=== PATIENT | male | born 1975 | race Caucasian/White ===

== ENCOUNTER → 2016-10-04 | Outpatient (CLI) | payer OTHER ==
--- NOTE | 2016-10-05 08:00 | US ---
EXAMINATION TYPE: US thyroid st tissue head/neck DATE OF EXAM: 10/04/2016 4:32 PM COMPARISON: NONE CLINICAL HISTORY: E03.9 Hypothyroidism. Hypothyroid GLAND SIZE: Right Lobe: 4.1 x 1.1 x 1.2 cm Overall Parenchyma: heterogenous Left Lobe: 4.1 x 1.3 x 1.6 cm Overall Parenchyma: heterogeneous Isthmus Thickness: 0.3 cm NODULES RIGHT: # of nodules measured on right: 0 LEFT: # of nodules measured on left: 0 ISTHMUS: # of nodules measured in the isthmus: 0 Bilateral neck scanned, no evidence of lymphadenopathy/ Small, heterogenous thyroid bilaterally IMPRESSION: Nonspecific thyroid heterogeneity without discrete nodule identified.
== END | disposition home or self-care (01) ==
LOC: RADUSWWP 16:17
PROVIDERS: ATTEND Family Medicine
DX: E03.9 Hypothyroidism, unspecified (principal)
CPT/HCPCS: 76536

== ENCOUNTER 2017-01-26 10:54 | Observation (INO) | payer OTHER ==
[2017-01-26] MEDS ORDERED: RX INFO: IV CONTRAST WAS GIVEN 1 EACH MISC MISCELLANE PRN (12:09)
[2017-01-26 13:13] LABS: Basophils # (A) 0.1 k/uL (0-0.2); Basophils % (A) 1 %; CH 30.7; CHCM 34.6; Eosinophils # (A) 0.1 k/uL (0-0.7); Eosinophils % (A) 1 %; HDW 2.78; Luc # (Auto) 0.14; Luc % (Auto) 2; Lymphocytes # (A) 2.2 k/uL (1.0-4.8); Lymphocytes % (A) 28 %; MCH 29.1 pg (25.0-35.0); MCHC 32.6 g/dL (31.0-37.0); MCV 89.1 fL (80.0-100.0); Mean Platelet Volume 7.1; Monocytes # (A) 0.5 k/uL (0-1.0); Monocytes % (A) 6 %; Neutrophils # (A) 4.9 k/uL (1.3-7.7); Neutrophils % (A) 62 %; RBC 4.82 m/uL (4.30-5.90); RDW 14.4 % (11.5-15.5); WBC 7.8 k/uL (3.8-10.6); WBC (Perox) 7.52
--- NOTE | 2017-01-26 13:17 | ED ---
General Adult HPI - General Source: patient, RN notes reviewed Mode of arrival: ambulatory Limitations: no limitations <Calvin Lopez - Last Filed: 01/26/17 15:52> <Gustavo Henderson - Last Filed: 01/26/17 22:31> - General Chief complaint: Abdominal Pain Stated complaint: lower abd pain Time Seen by Provider: 01/26/17 12:01 - History of Present Illness Initial comments: Patient 41-year-old male who presents emergency room today with chief complaint of pain to the right lower quadrant last 3 days. Patient does admit that he also is worried about a hernia to the umbilical area. States with the family doctor earlier today and was advised coming here to the emergency room for further evaluation. Patient currently rates pain 5/10. He denies any other complaints associated symptoms. Has not any pain medication here. Patient denies any recent fever, chills, shortness of breath, chest pain, back pain, nausea or vomiting, numbness or tingling, dysuria or hematuria, constipation or diarrhea, headaches or visual changes, or any other complaints. (Calvin Lopez) - Related Data Home Medications Medication Instructions Recorded Confirmed Levothyroxine Sodium [Synthroid] 125 mcg PO DAILY 01/29/15 01/26/17 Atorvastatin [Lipitor] 40 mg PO HS 01/26/17 01/26/17 Allergies Allergy/AdvReac Type Severity Reaction Status Date / Time No Known Allergies Allergy Verified 01/26/17 12:00 Review of Systems ROS Other: All systems not noted in ROS Statement are negative. <Calvin Lopez - Last Filed: 01/26/17 15:52> ROS Other: All systems not noted in ROS Statement are negative. <Gustavo Henderson - Last Filed: 01/26/17 22:31> ROS Statement: Those systems with pertinent positive or pertinent negative responses have been documented in the HPI. Past Medical History Past Medical History: Thyroid Disorder History of Any Multi-Drug Resistant Organisms: None Reported Past Surgical History: Ear Surgery Additional Past Surgical History / Comment(s): back Past Psychological History: Anxiety Smoking Status: Light tobacco smoker Past Alcohol Use History: None Reported Past Drug Use History: None Reported <Calvin Lopez - Last Filed: 01/26/17 15:52> General Exam Limitations: no limitations <Calvin Lopez - Last Filed: 01/26/17 15:52> <Gustavo Henderson - Last Filed: 01/26/17 22:31> - General Exam Comments Initial Comments: General: The patient is awake and alert, in no distress, and does not appear acutely ill. Eye: Pupils are equal, round and reactive to light, extra-ocular movements are intact. No nystagmus. There is normal conjunctiva bilaterally. No signs of icterus. Ears, nose, mouth and throat: There are moist mucous membranes and no oral lesions. Neck: The neck is supple, there is no tenderness or JVD. Cardiovascular: There is a regular rate and rhythm. No murmur, rub or gallop is appreciated. Respiratory: Lungs are clear to auscultation, respirations are non-labored, breath sounds are equal. No wheezes, stridor, rales, or rhonchi. Gastrointestinal: Normal appearance abdomen. Normal bowel sounds. Abdomen soft on palpation. Patient does have mild tenderness to the umbilical area small hernia that is reducible. Patient does have increased tenderness to the right lower quadrant. No rebound tenderness. No guarding. Musculoskeletal: Normal ROM, no tenderness. Strength 5/5. Sensation intact. Pulses equal bilaterally 2+. Neurological: A&O x 3. CN II-XII intact, There are no obvious motor or sensory deficits. Coordination appears grossly intact. Speech is normal. Skin: Skin is warm and dry and no rashes or lesions are noted. Psychiatric: Cooperative, appropriate mood & affect, normal judgment. (Calvin Lopez) Medical Decision Making - Lab Data Result diagrams: 01/26/17 12:57 01/26/17 12:57 <Calvin Lopez - Last Filed: 01/26/17 15:52> - Lab Data Result diagrams: 01/26/17 12:57 01/26/17 12:57 <Gustavo Henderson - Last Filed: 01/26/17 22:31> - Medical Decision Making Patient's CT does show evidence consistent with an acute appendicitis. Patient updated results will be started on antibiotics here in the emergency room and admitted to surgical patient aware the plan states understanding. (Calvin Lopez) Three-day history of abdominal pain primarily right lower quadrant. Patient is tender, CT does show early appendicitis with a 7 mm appendix and adjacent fat stranding. Case is discussed with general surgery. Patient will be admitted, likely OR at 5:30 PM. (Gustavo Henderson) - Lab Data Lab Results 01/26/17 01/26/17 01/26/17 Range/Units 12:57 12:57 12:57 WBC 7.8 (3.8-10.6) k/uL RBC 4.82 (4.30-5.90) m/uL Hgb 14.0 (13.0-17.5) gm/dL Hct 43.0 (39.0-53.0) % MCV 89.1 (80.0-100.0) fL MCH 29.1 (25.0-35.0) pg MCHC 32.6 (31.0-37.0) g/dL RDW 14.4 (11.5-15.5) % Plt Count 260 (150-450) k/uL Neutrophils % 62 % Lymphocytes % 28 % Monocytes % 6 % Eosinophils % 1 % Basophils % 1 % Neutrophils # 4.9 (1.3-7.7) k/uL Lymphocytes # 2.2 (1.0-4.8) k/uL Monocytes # 0.5 (0-1.0) k/uL Eosinophils # 0.1 (0-0.7) k/uL Basophils # 0.1 (0-0.2) k/uL Sodium 140 (137-145) mmol/L Potassium 4.4 (3.5-5.1) mmol/L Chloride 102 (98-107) mmol/L Carbon Dioxide 26 (22-30) mmol/L Anion Gap 12 mmol/L BUN 14 (9-20) mg/dL Creatinine 0.80 (0.66-1.25) mg/dL Est GFR (MDRD) Af Amer >60 (>60 ml/min/1.73 sqM) Est GFR (MDRD) Non-Af >60 (>60 ml/min/1.73 sqM) Glucose 106 H (74-99) mg/dL Plasma Lactic Acid Calixto 1.2 (0.7-2.0) mmol/L Calcium 9.1 (8.4-10.2) mg/dL Total Bilirubin 0.5 (0.2-1.3) mg/dL AST 32 (17-59) U/L ALT 62 (21-72) U/L Alkaline Phosphatase 89 (38-126) U/L Total Protein 7.4 (6.3-8.2) g/dL Albumin 4.4 (3.5-5.0) g/dL Amylase 43 (30-110) U/L Lipase 64 (23-300) U/L Disposition Time of Disposition: 15:35 <Calvin Lopez - Last Filed: 01/26/17 15:52> <Gustavo Henderson - Last Filed: 01/26/17 22:31> Clinical Impression: Appendicitis, acute Disposition: ADMITTED IP TO THIS HOSP Condition: Good
[2017-01-26 13:20] LABS: ALT 62 U/L (21-72); AST 32 U/L (17-59); Alkaline Phosphatase 89 U/L (38-126); Amylase 43 U/L (30-110); Anion Gap 12 mmol/L; Blood Urea Nitrogen 14 mg/dL (9-20); Calcium 9.1 mg/dL (8.4-10.2); Carbon Dioxide 26 mmol/L (22-30); Chloride 102 mmol/L (98-107); Glucose 106 mg/dL (74-99); Non-African American GFR(MDRD) >60 (>60 ml/min/1.73 sqM); Potassium 4.4 mmol/L (3.5-5.1); Sodium 140 mmol/L (137-145); Total Bilirubin 0.5 mg/dL (0.2-1.3); Total Protein 7.4 g/dL (6.3-8.2)
--- NOTE | 2017-01-26 14:00 | XR ---
EXAMINATION TYPE: XR KUB DATE OF EXAM: 01/26/2017 CLINICAL DATA: 41 year-old male with right lower quadrant abdominal pain, PHH COMPARISON: None FINDINGS: Lung bases are clear. No evidence for free intraperitoneal air. No dilated small bowel or air-fluid levels. Scattered air and stool seen throughout the colon extendi ng distally into the rectum. Mild stool burden. No suspicious calcifications identified. IMPRESSION: No evidence of bowel obstruction or free intraperitoneal air.
--- NOTE | 2017-01-26 15:03 | CT ---
EXAMINATION TYPE: CT abdomen pelvis w con DATE OF EXAM: 01/26/2017 COMPARISON: NONE HISTORY: Right lower quadrant pain x 3-4 days and lump by umbilicus x [address] DLP: 1738.00 mGycm CONTRAST: CT scan of the abdomen and pelvis is performed without Oral Contrast and with IV Contrast, patient in jected with 100 mL of Omnipaque 300. FINDINGS: LUNG BASES-: No visible nodule. No infiltrate. LIVER/GB: No calcified gallstones. No space occupying hepatic lesion. Biliary tree is of normal ca liber. There is evidence of hepatic steatosis. PANCREAS: No inflammation. No distinct mass. SPLEEN: No splenic enlargement. No lesion seen. ADRENALS: Right adrenal adenoma measures 1.8 cm. KIDNEYS/BLADDER: No hydronephrosis. No nephrolithiasis. No disctinct renal mass. Urinary bladder g rossly unremarkable. BOWEL: While the appendix is not dilated at 7 mm others mild periappendiceal strandy attenuation whic h could reflect very mild acute appendicitis. Correlate clinically. There is no evidence of perforati on or abscess. Normal bowel caliber. GENITAL ORGANS: Prostate enlargement with central glandular calcification. LYMPH NODES: No greater than 1cm abdominal or pelvic lymph nodes are appreciated. AORTA: No significant abnormality. OSSEOUS STRUCTURES: No significant abnormality is seen. OTHER: No significant additional abnormality is seen. IMPRESSION: 1. Correlate for very mild early acute appendicitis. See above. 2. Hepatic steatosis. 3. Right adrenal adenoma.
[2017-01-26] MEDS ORDERED: PIPERACILLIN-TAZOBACTAM 3.375 GM in DEXTROSE/WATER 1 50ML.BAG IVPB STA (15:52)
[2017-01-26] MEDS ORDERED: NALOXONE 0.4 MG/ML 1 ML VIAL IV PRN (15:54)
[2017-01-26] MEDS ORDERED: ONDANSETRON 4 MG/2 ML VIAL IVP PRN ×2 (15:54→17:22)
--- NOTE | 2017-01-26 15:55 | P.GSHP ---
History of Present Illness H&P Date: 01/26/17 Chief Complaint: RLQ pain 41 years old male presented with 2 day history of right lower quadrant pain. Loss of appetite present. No fever, chills or riders. Last meal was yesterday. Known small umbilical hernia - Review of Systems Comment: Constitutional: Denies fever, weight loss or loss of appetite HEENT: No difficulty in vision or hearing. Denies dysphagia. Cardiovascular: Known WPW syndrome status post cardiac ablation. Denies chest pain, palpitations, dizziness, shortness of breath. Respiratory: Recent upper respiratory tract infection with dry cough. Long- standing asthma well controlled with rescue inhalers. Gastrointestinal: No recent change in bowel habits, no abdominal pain, no nausea or vomiting. Denies reflux symptoms and no postprandial right upper quadrant pain. Integumentary: No rash or skin ulcers Genitourinary: No urinary incontinence, hematuria or dysuria Neurologic: No seizures, denies weakness in upper or lower extremities Past Medical History Past Medical History: Thyroid Disorder History of Any Multi-Drug Resistant Organisms: None Reported Past Surgical History: Ear Surgery Additional Past Surgical History / Comment(s): back Past Psychological History: Anxiety Smoking Status: Light tobacco smoker Past Alcohol Use History: None Reported Past Drug Use History: None Reported Medications and Allergies Home Medications Medication Instructions Recorded Confirmed Type Levothyroxine Sodium [Synthroid] 125 mcg PO DAILY 01/29/15 01/26/17 History Atorvastatin [Lipitor] 40 mg PO HS 01/26/17 01/26/17 History Allergies Allergy/AdvReac Type Severity Reaction Status Date / Time No Known Allergies Allergy Verified 01/26/17 12:00 Surgical - Exam Vital Signs Temp Pulse Resp BP Pulse Ox 98.4 F 72 17 133/80 97 01/26/17 11:03 01/26/17 11:03 01/26/17 11:03 01/26/17 11:03 01/26/17 11:03 General: Patient is alert and oriented to time, place and person and cooperative with exam. He is not in acute distress. HEENT: No pallor, no icterus, no thyroid enlargement, no cervical lymphadenopathy. Chest: Bilateral equal breath sounds present. No wheezes, no crackles. Cardiovascular: Regular rate and rhythm. Abdomen: Soft, nontender, nondistended. Integumentary: Bilateral lower extremity chronic venous dermatitis. No active ulcers or discharge. Neurologic: Cranial nerves II-XII intact. Strength upper and lower extremities 5/5. No focal neurologic deficits. Gait is normal. Results - Labs 01/26/17 12:57 01/26/17 12:57 Abnormal Lab Results - Last 24 Hours (Table) 01/26/17 Range/Units 12:57 Glucose 106 H (74-99) mg/dL Diabetes panel 01/26/17 Range/Units 12:57 Sodium 140 (137-145) mmol/L Potassium 4.4 (3.5-5.1) mmol/L Chloride 102 (98-107) mmol/L Carbon Dioxide 26 (22-30) mmol/L BUN 14 (9-20) mg/dL Creatinine 0.80 (0.66-1.25) mg/dL Glucose 106 H (74-99) mg/dL Calcium 9.1 (8.4-10.2) mg/dL AST 32 (17-59) U/L ALT 62 (21-72) U/L Alkaline Phosphatase 89 (38-126) U/L Total Protein 7.4 (6.3-8.2) g/dL Albumin 4.4 (3.5-5.0) g/dL Calcium panel 01/26/17 Range/Units 12:57 Calcium 9.1 (8.4-10.2) mg/dL Albumin 4.4 (3.5-5.0) g/dL Pituitary panel 01/26/17 Range/Units 12:57 Sodium 140 (137-145) mmol/L Potassium 4.4 (3.5-5.1) mmol/L Chloride 102 (98-107) mmol/L Carbon Dioxide 26 (22-30) mmol/L BUN 14 (9-20) mg/dL Creatinine 0.80 (0.66-1.25) mg/dL Glucose 106 H (74-99) mg/dL Calcium 9.1 (8.4-10.2) mg/dL Adrenal panel 01/26/17 Range/Units 12:57 Sodium 140 (137-145) mmol/L Potassium 4.4 (3.5-5.1) mmol/L Chloride 102 (98-107) mmol/L Carbon Dioxide 26 (22-30) mmol/L BUN 14 (9-20) mg/dL Creatinine 0.80 (0.66-1.25) mg/dL Glucose 106 H (74-99) mg/dL Calcium 9.1 (8.4-10.2) mg/dL Total Bilirubin 0.5 (0.2-1.3) mg/dL AST 32 (17-59) U/L ALT 62 (21-72) U/L Alkaline Phosphatase 89 (38-126) U/L Total Protein 7.4 (6.3-8.2) g/dL Albumin 4.4 (3.5-5.0) g/dL - Imaging Additional studies: CT scan of the abdomen and pelvis reviewed. Mildly dilated appendix with fat stranding suggestive of acute appendicitis Assessment and Plan (1) Acute appendicitis Status: Acute Plan: 1. RLQ pain 2. Acute appendicitis possible open 3. Unasyn 3 gm IVPBx1 4. Heparin 5000 Unit SQx 1 5. Bilateral SCDs
[2017-01-26] MEDS ORDERED: HEPARIN SODIUM,PORCINE 5,000 UNIT/ML 1 ML VIAL SQ STA (15:58)
[2017-01-26] MEDS ORDERED: IV FLUID CONTINUATION 1,000 ML IV ONE (16:59)
[2017-01-26 17:06] LABS: Appearance,Urine Clear (Clear); Bacteria,Urine Rare /hpf; Bilirubin,Urine Negative (Negative); Glucose,Urine (UA) Negative (Negative); Ketones,Urine Negative (Negative); Leukocyte Esterase,Urine Negative (Negative); Nitrite,Urine Negative (Negative); Particle Count 374; Protein,Urine 1+ (Negative); RBC,Urine <1 /hpf (0-5); Squamous Epithelial Cell,Urine <1 /hpf (0-4); UA Billing (MACRO vs. MICRO) MICRO; Urobilinogen,Urine <2.0 mg/dL (<2.0)
[2017-01-26 17:07] LABS: Specific Gravity,Urine >1.050 (1.001-1.035)
[2017-01-26] MEDS ORDERED: HYDROmorphone (PF) 1 MG/ML ONE (17:09)
[2017-01-26] MEDS ORDERED: PROPOFOL 10 MG/ML 20 ML VIAL IV ONE (17:09)
[2017-01-26] MEDS ORDERED: ROCURONIUM BROMIDE 10 MG/ML 10 ML VIAL IV ONE (17:09)
[2017-01-26] MEDS ORDERED: MIDAZOLAM 2 MG/2 ML VIAL ONE (17:09)
[2017-01-26] MEDS ORDERED: LIDOCAINE 1% INJ 10MG/ML (20 ML MDV) ONE (17:09)
[2017-01-26] MEDS ORDERED: SUCCINYLCHOLINE CHLORIDE 100 MG/5 ML SYR IV ONE (17:09)
[2017-01-26] MEDS ORDERED: NEOSTIGMINE 1 MG/ML 10 ML VIAL ONE (17:09)
[2017-01-26] MEDS ORDERED: GLYCOPYRROLATE 0.2 MG/ML 2 ML VIAL ONE (17:09)
[2017-01-26] MEDS ORDERED: fentaNYL (PF) 50 MCG/ML 2 ML AMP ONE (17:09)
[2017-01-26] MEDS ORDERED: BUPIVACAINE (PF) 0.25% 30 ML VIAL SQ ONE (17:13)
[2017-01-26] MEDS: HYDROmorphone 1 MG/ML 1 ML SYRINGE IVP ONE ×2 (18:38→18:42)
[2017-01-26] MEDS ORDERED: HYDROmorphone 1 MG/ML 1 ML SYRINGE IVP ONE (18:50)
[2017-01-26 19:05] VITALS: RESP 16
[2017-01-26] MEDS: HYDROcodone/APAP 5-325MG 1 EACH TAB PO PRN (21:00)
[2017-01-26 21:15] VITALS: BMI 39.9
[2017-01-26] MEDS: LACTATED RINGERS 1,000 ML IV SCH (22:40)
[2017-01-26] MEDS: HYDROmorphone 1 MG/ML 1 ML SYRINGE IV PRN (23:19)
[2017-01-27 02:04] VITALS: PULSE 78
[2017-01-27] MEDS: HYDROmorphone 1 MG/ML 1 ML SYRINGE IV PRN (05:45)
[2017-01-27] MEDS: LACTATED RINGERS 1,000 ML IV SCH ×2 (06:51→12:17)
[2017-01-27 08:21] VITALS: BP 113/71; TEMP 97.6
[2017-01-27] MEDS: HYDROcodone/APAP 5-325MG 1 EACH TAB PO PRN ×2 (08:59→12:56)
[2017-01-27] MEDS ORDERED: PANTOPRAZOLE 40 MG TABLET PO SCH (09:00)
--- NOTE | 2017-01-27 12:36 | P.DS ---
Providers Date of admission: 01/26/17 15:50 Expected date of discharge: 01/27/17 Attending physician: Dara Colon Primary care physician: Farshad Serrato [facility] Course: A 41-year-old gentleman who presented on the day of admission with a chief complaint of developing right lower quadrant pain loss of appetite. Denied any fever chills. Evaluated in the emergency room on January 26 for the above- mentioned symptoms. Patient did undergo a computed tomography scan of the abdomen pelvis with contrast showed mild early acute appendicitis patient was admitted to the services of the attending surgical service. Recommendations were to proceed with an appendectomy. The patient elected to undergo a laparoscopic appendectomy on January 26. There were no postop events. On January 28 was felt to be hemodynamically stable and appropriate proceed with a discharge Impression discharge diagnosis History of 2-3 day duration right lower quadrant pain suspect due to acute appendicitis CAT scan abdomen and pelvis with contrast on January 27 show evidence of acute appendicitis Present on admission right lower quadrant pain suspect due to appendicitis Hypothyroid on supplement Dyslipidemia The above impression and plan of care have been discussed and directed by signing physician. Selam Miguel nurse practitioner acting as scribe for signing physician. Patient Condition at Discharge: Good Plan - Discharge Summary New Discharge Prescriptions: New HYDROcodone/APAP 5-325MG [[place] 5-325] 1 each PO Q4HR PRN #15 tab PRN Reason: Pain Continue Levothyroxine Sodium [Synthroid] 125 mcg PO DAILY Atorvastatin [Lipitor] 40 mg PO HS Discharge Medication List Levothyroxine Sodium [Synthroid] 125 mcg PO DAILY 01/29/15 [History] Atorvastatin [Lipitor] 40 mg PO HS 01/26/17 [History] HYDROcodone/APAP 5-325MG [[place] 5-325] 1 each PO Q4HR PRN #15 tab 01/27/17 [Rx] Follow up Appointment(s)/Referral(s): Dara Colon MD [STAFF PHYSICIAN] - 02/01/17 2:20 pm Farshad Serrato MD [Primary Care Provider] - 02/01/17 10:00 am Activity/Diet/Wound Care/Special Instructions: OK to shower . No soaking bath. No heavy lifting more than 10 lbs for 6 weeks post surgery. No driving while taking narcotics for pain. May use ice packs for local pain relief Take Motrin 600 mg po TID after meals if pain is not controlled Use incentive spirometry 10 times an hour while awake Discharge Disposition: HOME SELF-CARE
--- NOTE | 2017-01-31 11:48 | P.OP ---
Date of Procedure: 01/26/17 Preoperative Diagnosis: Acute appendicitis Morbid obesity BMI 39.9 Hypothyroidism Postoperative Diagnosis: Same Procedure(s) Performed: Laparoscopic appendectomy possible open Primary umbilical hernia repair without mesh Implants: NA Anesthesia: GETA, local Surgeon: Dara Colon Pathology: other Condition: stable Disposition: PACU Indications for Procedure: 41 years old male presents with acute onset of right lower quadrant pain. Computed tomography scan shows early appendicitis. Informed consent obtained and he elected to undergo the surgery Operative Findings: Acute appendicitis Description of Procedure: The patient was brought to the operating room and placed in supine position with left arm tucked and a footboard was placed. General anesthesia with endotracheal intubation was performed as per anesthesia team. A Ibanez catheter was inserted under sterile aseptic precautions. Chlorhexidine was used to prep the abdomen followed by application of sterile drapes. A timeout was performed to verify correct patient and correct procedure. Patient was confirmed to receive perioperative IV antibiotics, subcutaneous heparin for VTE prophylaxis and bilateral SCDs were placed. A 5 mm skin incision was made in the left anterior axillary line and a Veress needle was inserted into the peritoneal cavity and CO2 insufflated to a pressure of 15 mmHg. A 5 mm Optiview trocar was loaded on a 5 mm 30 laparoscope and peritoneal cavity was entered under direct vision. An additional 5 mm trocar was placed in the suprapubic location in midline and a 12 mm trocar in the infraumbilical location. Patient was placed in Trendelenburg with right side up. The appendix was identified. The appendix was grasped using a laparoscopic Hestand instrument. A suction irrigation device was used to gently dissecting appendix from the surrounding tissue. All the fibrinous exudates were removed. A window was made in the mesoappendix close to the cecal base using a [place] dissector. Laparoscopic Ligasure was used to divide the mesoappendix. No bleeding noted from the mesoappendiceal stump. The appendix was divided at its base, at the confluence of three tenia using Ethicon stapler 45 blue load. The staple line was intact without evidence of bleeding. The appendix was placed in an endocatch bag and was retrieved through the infraumbilical port site. All the trocar sites were examined and no evidence of bleeding. Excess fluid was suctioned out. An additional 5 mm trocar was placed in the right lower quadrant to assist with dissection. There was a small umbilical hernia containing preperitoneal fat which was also reduced and incorporated in the closure of the 12 mmtrocar site The 12 mm trocar site was closed using three transfascial sutures of 0 Vicryl which were placed using a Tank Steph device. Local anesthetic was infiltrated along all the ports sites. The sponge, instrument and needle count were correct x2. CO2 gas was evacuated and trocars were removed. 4-0 Monocryl was used to close the skin incisions followed by Dermabond skin glue. Ibanez catheter was discontinued. Patient tolerated the procedure well and was taken to post anesthesia care unit in stable condition.
== END 2017-01-27 13:44 | disposition home or self-care (01) ==
LOC: EC 10:54 → 3SUR 15:50
PROVIDERS: ADMIT Surgery; ATTEND Surgery
DX: K35.80 Unspecified acute appendicitis (principal); E07.9 Disorder of thyroid, unspecified; F41.9 Anxiety disorder, unspecified; F17.200 Nicotine dependence, unspecified, uncomplicated; K42.9 Umbilical hernia without obstruction or gangrene; I45.6 Pre-excitation syndrome; E78.5 Hyperlipidemia, unspecified; Z79.899 Other long term (current) drug therapy; Z68.39 Body mass index [BMI] 39.0-39.9, adult; E66.01 Morbid (severe) obesity due to excess calories; E03.9 Hypothyroidism, unspecified
CPT/HCPCS: 44970; 96366; 96375; 99285; 36415; 88304; 80053; 82150; 83605; 83690; 85025; 81001; 87040; 74000; 74177; 49652; G0378 ×2; J2250; J1644; J2710; J2405; J2001; J3010; J1170 ×2; J2543; Q9967; J0330; J2704

== ENCOUNTER 2017-08-01 13:07 | Emergency (ER) | payer OTHER ==
[2017-08-01 13:27] VITALS: BP 161/108; PULSE 75; RESP 18; TEMP 98
--- NOTE | 2017-08-01 14:23 | XR ---
EXAMINATION TYPE: XR shoulder complete RT DATE OF EXAM: 08/01/2017 COMPARISON: NONE HISTORY: Pain TECHNIQUE: Three views are submitted. FINDINGS: The osseous structures are intact. There is no acute fracture or dislocation. The AC joint is maint ained. IMPRESSION: 1. No acute process.
--- NOTE | 2017-08-01 14:41 | ED ---
General Adult HPI - General Chief complaint: Extremity Injury, Upper Stated complaint: Shoulder Pain Time Seen by Provider: 08/01/17 13:47 Source: patient, RN notes reviewed Mode of arrival: ambulatory Limitations: no limitations - History of Present Illness Initial comments: This is a 42-year-old male who presents to the emergency department with chief complaint of right shoulder pain. Patient states that he has been experiencing right shoulder pain for the past 2 weeks. He states that he has had an increase in pain since last week when he had a fall. Patient denies any specific initial injuries or trauma to the right shoulder. Denies fever, chills , chest pain, shortness of breath, abdominal pain, nausea or vomiting, constipation or diarrhea, dysuria or hematuria, numbness or tingling, headache or vision changes. - Related Data Home Medications Medication Instructions Recorded Confirmed Atorvastatin [Lipitor] 40 mg PO HS 01/26/17 01/26/17 Levothyroxine Sodium [Synthroid] 175 mcg PO DAILY 08/01/17 08/01/17 Omeprazole 20 mg PO DAILY 08/01/17 08/01/17 Previous Rx's Medication Instructions Recorded Ibuprofen 600 mg PO Q6HR #20 tablet 08/01/17 Allergies Allergy/AdvReac Type Severity Reaction Status Date / Time No Known Allergies Allergy Verified 08/01/17 13:27 Review of Systems ROS Statement: Those systems with pertinent positive or pertinent negative responses have been documented in the HPI. ROS Other: All systems not noted in ROS Statement are negative. Past Medical History Past Medical History: GERD/Reflux, Hyperlipidemia, Thyroid Disorder History of Any Multi-Drug Resistant Organisms: None Reported Past Surgical History: Appendectomy, Ear Surgery, Hernia Repair Additional Past Surgical History / Comment(s): back surgery 2000 Past Psychological History: Anxiety Smoking Status: Former smoker Past Alcohol Use History: None Reported Past Drug Use History: None Reported General Exam - General Exam Comments Initial Comments: General: Awake and alert, well-developed; in no apparent distress. HEENT: Head atraumatic, normocephalic. Pupils are equal, round and reactive to light. Extraocular movements intact. Oropharynx moist without erythema or exudate. Neck: Supple. Normal ROM. Cardiovascular: Regular rate and rhythm. No murmurs, rubs or gallops. Chest symmetrical. Respiratory: Lungs clear to auscultation bilaterally. No wheezes, rales or rhonchi. Normal respiratory effort with no use of accessory muscles. Musculoskeletal: Limited range of motion of the right shoulder with internal rotation. Normal range of motion with abduction, abduction and flexion. No swelling, erythema or contusions noted. Sensation is intact. Radial pulses are 2+ equal and palpable bilaterally. Skin: Acorn, warm and dry without rashes or lesions. Neurological: Alert and oriented x3. CN II-XII grossly intact. Speech is fluent and answers are appropriate. No focal neuro deficits. Psychiatric: Normal mood and affect. No overt signs of depression or anxiety noted. Limitations: no limitations Course Vital Signs 08/01/17 13:25 Temperature 98.0 F Pulse Rate 75 Respiratory 18 Rate Blood Pressure 161/108 O2 Sat by Pulse 97 Oximetry Medical Decision Making - Medical Decision Making This is a 42-year-old male who presents to the emergency department with chief complaint of right shoulder pain 2 weeks. Patient denies any specific initial injury or trauma. He does state that one week ago he had a fall which exacerbated the pain. Patient has normal range of motion of the right shoulder , however internal rotation is limited due to pain. X-ray revealed no acute osseous abnormalities. Patient likely suffering from a sprain or strain of the shoulder. He will be given a referral to orthopedics. Patient is in agreement with plan and voices understanding. All questions were answered. He is in no acute distress and will be discharged home at this time. - Radiology Data Radiology results: report reviewed X-ray right shoulder findings: The osseous structures are intact. There is no acute fracture or dislocation. AC joint is maintained. Impression: No acute process. Disposition Clinical Impression: Strain of shoulder Disposition: HOME SELF-CARE Condition: Good Instructions: Shoulder Sprain (ED), Shoulder Pain (ED) Additional Instructions: Please follow-up with Dr. Jennings within 1-2 days. Please take medications as prescribed. Please follow up with primary care provider within 1-2 days. Return to emergency department if symptoms should worsen or any concerns arise. Prescriptions: Ibuprofen 600 mg PO Q6HR #20 tablet Referrals: Farshad Serrato MD [Primary Care Provider] - 1-2 days Jose Jennings MD [STAFF PHYSICIAN] - 1-2 days Time of Disposition: 14:47
== END 2017-08-01 15:27 | disposition home or self-care (01) ==
LOC: EC 13:07
DX: S46.911A Strain of unspecified muscle, fascia and tendon at shoulder and upper arm level, right arm, initial encounter (principal); K21.9 Gastro-esophageal reflux disease without esophagitis; E78.5 Hyperlipidemia, unspecified; E07.9 Disorder of thyroid, unspecified; Z87.891 Personal history of nicotine dependence; Z79.899 Other long term (current) drug therapy; W01.0XXA Fall on same level from slipping, tripping and stumbling without subsequent striking against object, initial encounter
CPT/HCPCS: 99283